=== PATIENT | male | born 1975 | race Caucasian/White ===

== ENCOUNTER 2019-10-03 17:14 | Emergency (ER) | payer MEDICAID ==
[~2019-10-03] VITALS: Ht 167.6 cm; Wt 70.5 kg
[2019-10-03 17:28] VITALS: BP 119/74
--- NOTE | 2019-10-03 17:40 | NUR ---
PT HERE FOR REFILL OF OXCARBAZEPINE 300 MG
--- NOTE | 2019-10-03 18:18 | NUR ---
BRIJESH CAMPBELL AT BEDSIDE FOR EVALUATION.
--- NOTE | 2019-10-03 18:29 | NUR ---
DISCHARGE INSTRUCTIONS REVIEWED
== END 2019-10-03 18:42 | disposition home or self-care (01) ==
LOC: ED 18:10
DX: R56.9 Unspecified convulsions (principal); Z76.0 Encounter for issue of repeat prescription
CPT/HCPCS: 99281

== ENCOUNTER 2019-12-24 17:01 | Emergency (ER) | payer MEDICAID ==
[~2019-12-24] VITALS: Ht 167.6 cm; Wt 69.0 kg
[2019-12-24 17:06] VITALS: BP 113/72
--- NOTE | 2019-12-24 17:17 | NUR ---
PT REPORT TO TARA GARAY RN. PT CARE TRANSFERRED.
[2019-12-24] MEDS ORDERED: CARB200T PO (17:18)
[2019-12-24] MEDS ORDERED: FLUO10CA13 PO (17:18)
== END 2019-12-24 17:49 | disposition home or self-care (01) ==
LOC: ED 17:31
DX: R56.9 Unspecified convulsions (principal); Z76.0 Encounter for issue of repeat prescription
CPT/HCPCS: 99281